=== PATIENT | female | born 1980 | race Caucasian/White ===

== ENCOUNTER 2017-11-05 01:23 | Inpatient (IN) | payer MEDICAID ==
[~2017-11-05] VITALS: Ht 167.6 cm; Wt 69.0 kg
[2017-11-05] MEDS ORDERED: OXYTOCIN 30U/ 0.9% NaCL 500ML 500 ML IV ONE (01:40)
[2017-11-05] MEDS ORDERED: LACTATED RINGERS 1,000 ML IV SCH (01:40)
[2017-11-05] MEDS ORDERED: D5%-LACTATED RINGERS 1,000 ML IV SCH (01:40)
[2017-11-05] MEDS ORDERED: MISOPROSTOL 200 MCG TABLET ONE (01:48)
[2017-11-05] MEDS ORDERED: NEWBORN KIT ONE (01:48)
[2017-11-05] MEDS ORDERED: LIDOCAINE/PF 1%, 30ML ONE ×2 (01:48→04:11)
[2017-11-05] MEDS ORDERED: OXYTOCIN 30U/ 0.9% NaCL 500ML 500 ML ONE ×2 (01:48→04:49)
[2017-11-05] MEDS ORDERED: FENTANYL PF 100 MCG/2ML IVPush PRN (02:00)
[2017-11-05] MEDS ORDERED: FENTANYL PF 100 MCG/2ML IV PRN (02:00)
[2017-11-05] MEDS ORDERED: CALCIUM CARBONATE 500 MG TAB.CHEW PO PRN (02:00)
[2017-11-05] MEDS ORDERED: ONDANSETRON ODT 4 MG PO PRN (02:00)
[2017-11-05 02:19] VITALS: BP 101/60
[2017-11-05 02:26] LABS: MD YES; MEAN CORPUSCULAR HEMOGLOBIN 30.2 pg (27.0-34.8); MEAN CORPUSCULAR HGB CONC 33.3 g/dL (32.4-35.8); MEAN CORPUSCULAR VOLUME 90.5 fL (80-100); MEAN PLATELET VOLUME 13.4 fL (7.4-10.4); PLATELET COUNT 220 x10^3/uL (130-400); RED BLOOD COUNT 4.07 x10^6/uL (3.82-5.3); RED CELL DISTRIBUTION WIDTH 15.2 % (9.6-15.2)
[2017-11-05 02:29] LABS: <PLATELET ESTIMATE> ADEQUATE; <RBC MORPHOLOGY> NORMAL; LARGE PLATELETS 1+; LYMPHS% (MANUAL) 15 % (22-44); MONOS% (MANUAL) 5 % (2-9); SEGS% (MANUAL) 80 % (42-75)
[2017-11-05] MEDS: OXYTOCIN 30U/ 0.9% NaCL 500ML 500 ML IV SCH ×2 (04:51→14:43)
[2017-11-05] MEDS ORDERED: ONDANSETRON 2MG/ML, 2ML IV PRN (05:00)
[2017-11-05] MEDS ORDERED: MISOPROSTOL 200 MCG TABLET PR PRN (05:00)
[2017-11-05] MEDS ORDERED: ACETAMINOPHEN 325 MG TABLET PO PRN (05:00)
[2017-11-05] MEDS ORDERED: HYDROcodone/APAP 5/325 TABLET PO PRN ×2 (05:00)
[2017-11-05] MEDS ORDERED: BISACODYL 10 MG SUPP PR PRN (05:00)
[2017-11-05] MEDS ORDERED: METOCLOPRAMIDE 5 MG/ML, 2ML IV PRN (05:00)
[2017-11-05 05:59] VITALS: BP 104/66
[2017-11-05 07:56] VITALS: BP 103/61
[2017-11-05] MEDS: PRENATAL VIT/IRON/FA 1 EACH TABLET PO SCH (08:39)
[2017-11-05] MEDS: DOCUSATE 100 MG CAPSULE PO PRN ×2 (08:39→22:20)
[2017-11-05] MEDS: IBUPROFEN 600 MG TABLET PO PRN ×2 (08:42→22:20)
[2017-11-05 12:00] VITALS: BP 99/63
[2017-11-05 12:57] LABS: BASOPHILS # (AUTO) 0.03 x10^3/uL (0-0.1); BASOPHILS % (AUTO) 0 % (0-1); EOSINOPHILS # (AUTO) 0.12 x10^3/uL (0-0.4); EOSINOPHILS % (AUTO) 1 % (1-7); LYMPHOCYTES # (AUTO) 1.46 x10^3/uL (1-3.4); LYMPHOCYTES % (AUTO) 10 % (22-44); MD NO; MEAN CORPUSCULAR HEMOGLOBIN 30.1 pg (27.0-34.8); MEAN CORPUSCULAR HGB CONC 32.8 g/dL (32.4-35.8); MEAN CORPUSCULAR VOLUME 91.7 fL (80-100); MEAN PLATELET VOLUME 10.7 fL (7.4-10.4); MONOCYTES # (AUTO) 0.62 x10^3/uL (0.2-0.8); MONOCYTES % (AUTO) 4 % (2-9); NEUTROPHILS # (AUTO) 12.19 x10^3/uL (1.8-6.8); NEUTROPHILS % (AUTO) 85 % (42-75); PLATELET COUNT 178 x10^3/uL (130-400); RED BLOOD COUNT 3.98 x10^6/uL (3.82-5.3)
[2017-11-05 16:00] VITALS: BP 98/67
[2017-11-05] MEDS ORDERED: DIPH,PERTUSS(ACELL),TET VAC/PF NC IM-VACC ONE (19:30)
[2017-11-05 19:50] VITALS: BP 106/73
[2017-11-06] VITALS: BP 102/63
[2017-11-06] MEDS: OXYTOCIN 30U/ 0.9% NaCL 500ML 500 ML IV SCH (00:43)
[2017-11-06] MEDS ORDERED: IBUP-1222 PO (07:06)
[2017-11-06] MEDS ORDERED: PREN1TAB60 PO (07:06)
[2017-11-06 08:20] VITALS: BP 106/70
[2017-11-06] MEDS: DOCUSATE 100 MG CAPSULE PO PRN (09:11)
[2017-11-06] MEDS: PRENATAL VIT/IRON/FA 1 EACH TABLET PO SCH (09:11)
[2017-11-06] MEDS: IBUPROFEN 600 MG TABLET PO PRN (14:32)
== END 2017-11-06 14:20 | disposition home or self-care (01) | DRG 775 ==
LOC: LDOP 01:23 → LDIP 01:43 → 2NW 05:44
PROVIDERS: ADMIT Family Medicine; ATTEND Obstetrics & Gynecology Female Pelvic Medicine and Reconstructive Surgery
PROC: 10E0XZZ Delivery of Products of Conception, External Approach (ICD-10-PCS; principal; 2017-11-05)
PROC: 0KQM0ZZ Repair Perineum Muscle, Open Approach (ICD-10-PCS; 2017-11-05)
DX: O70.1 Second degree perineal laceration during delivery (principal); Z37.0 Single live birth; Z3A.39 39 weeks gestation of pregnancy
CPT/HCPCS: 36415; 85025; 86850; 86900; 90715; J2590; J7120

== ENCOUNTER 2018-04-01 00:51 | Inpatient (IN) | payer MEDICAID ==
[~2018-04-01] VITALS: Ht 167.6 cm; Wt 63.8 kg
[~2018-04-01 00:51] MED LIST: IBUP-1222 PO; PREN1TAB60 PO
[2018-04-01] MEDS ORDERED: ONDANSETRON 2MG/ML, 2ML ONE (01:10)
[2018-04-01] MEDS ORDERED: MORPHINE SULFATE 4 MG/ML, 1ML ONE ×2 (01:11→02:51)
[2018-04-01] MEDS: MORPHINE SULFATE 4 MG/ML, 1ML IVPush PRN ×2 (01:20→01:57)
[2018-04-01 01:22] LABS: BASOPHILS # (AUTO) 0.01 x10^3/uL (0-0.1); BASOPHILS % (AUTO) 0 % (0-1); EOSINOPHILS # (AUTO) 0.11 x10^3/uL (0-0.4); EOSINOPHILS % (AUTO) 1 % (1-7); LYMPHOCYTES # (AUTO) 1.06 x10^3/uL (1-3.4); LYMPHOCYTES % (AUTO) 9 % (22-44); MD NO; MEAN CORPUSCULAR HGB CONC 33.4 g/dL (32.4-35.8); MEAN CORPUSCULAR VOLUME 92.9 fL (80-100); MEAN PLATELET VOLUME 9.4 fL (7.4-10.4); MONOCYTES # (AUTO) 0.53 x10^3/uL (0.2-0.8); MONOCYTES % (AUTO) 5 % (2-9); NEUTROPHILS # (AUTO) 9.86 x10^3/uL (1.8-6.8); NEUTROPHILS % (AUTO) 85 % (42-75); PLATELET COUNT 236 x10^3/uL (130-400); RED BLOOD COUNT 4.95 x10^6/uL (3.82-5.3); RED CELL DISTRIBUTION WIDTH 12.9 % (9.6-15.2)
[2018-04-01] MEDS ORDERED: SODIUM CHLORIDE FLUSH 10ML SYR IVF ONE ×2 (01:30→02:30)
[2018-04-01] MEDS ORDERED: ONDANSETRON 2MG/ML, 2ML IVPush ONE ×2 (01:30→03:00)
[2018-04-01 01:34] LABS: ALANINE AMINOTRANSFERASE 112 U/L (12-78); ALBUMIN 3.6 g/dL (3.4-5.0); ANION GAP 9 mmol/L (5-15); CALCIUM 8.7 mg/dL (8.5-10.1); CHLORIDE 108 mmol/L (98-107); CREATININE 0.85 mg/dL (0.55-1.02)
[2018-04-01 01:39] LABS: ALKALINE PHOSPHATASE 75 U/L (45-117); BILIRUBIN,TOTAL 2.3 mg/dL (0.2-1.0)
[2018-04-01] MEDS ORDERED: SODIUM CHLORIDE 0.9% 1,000ML IVBOLUS ONE (02:30)
[2018-04-01] MEDS ORDERED: MORPHINE SULFATE 4 MG/ML, 1ML IVPush PRN (03:00)
[2018-04-01 03:45] VITALS: BP 129/80
[2018-04-01] MEDS ORDERED: SODIUM CHLORIDE 0.9% 1,000 ML IV SCH (04:58)
[2018-04-01] MEDS: HEPARIN 5,000 UNITS/ML, 1ML SQ SCH ×3 (05:00→20:46)
[2018-04-01] MEDS ORDERED: ONDANSETRON ODT 4 MG PO PRN (05:00)
[2018-04-01] MEDS: HYDROmorphone 2 MG/ML, 1ML IVPush PRN ×2 (05:31→14:12)
[2018-04-01] MEDS: PROMETHAZINE 25 MG/ML, 1ML IM PRN (05:32)
[2018-04-01] MEDS: LACTATED RINGERS 1,000 ML IV SCH ×4 (05:32→23:45)
[2018-04-01 07:25] VITALS: BP 136/75
[2018-04-01] MEDS: KETOROLAC 30 MG/1 ML IV PRN ×3 (09:58→23:11)
[2018-04-01 12:31] VITALS: BP 122/73
[2018-04-01 19:02] VITALS: BP 118/65
[2018-04-02 01:15] VITALS: BP 125/73
[2018-04-02] MEDS: HYDROmorphone 2 MG/ML, 1ML IVPush PRN ×3 (03:58→23:24)
[2018-04-02] MEDS: HEPARIN 5,000 UNITS/ML, 1ML SQ SCH ×3 (04:34→19:35)
[2018-04-02 05:06] LABS: ALANINE AMINOTRANSFERASE 69 U/L (12-78); ALBUMIN 2.8 g/dL (3.4-5.0); ANION GAP 8 mmol/L (5-15); CALCIUM 7.6 mg/dL (8.5-10.1); CHLORIDE 110 mmol/L (98-107); CREATININE 0.56 mg/dL (0.55-1.02)
[2018-04-02 05:08] LABS: ALKALINE PHOSPHATASE 65 U/L (45-117); BILIRUBIN,TOTAL 0.9 mg/dL (0.2-1.0); TOTAL PROTEIN 5.6 g/dL (6.4-8.2)
[2018-04-02] MEDS: LACTATED RINGERS 1,000 ML IV SCH ×3 (06:10→23:24)
[2018-04-02 06:19] LABS: BASOPHILS # (AUTO) 0.01 x10^3/uL (0-0.1); BASOPHILS % (AUTO) 0 % (0-1); EOSINOPHILS # (AUTO) 0.04 x10^3/uL (0-0.4); EOSINOPHILS % (AUTO) 1 % (1-7); LYMPHOCYTES # (AUTO) 1.23 x10^3/uL (1-3.4); LYMPHOCYTES % (AUTO) 15 % (22-44); MD NO; MEAN CORPUSCULAR HEMOGLOBIN 30.5 pg (27.0-34.8); MEAN CORPUSCULAR HGB CONC 33.3 g/dL (32.4-35.8); MEAN CORPUSCULAR VOLUME 91.5 fL (80-100); MEAN PLATELET VOLUME 10.4 fL (7.4-10.4); MONOCYTES # (AUTO) 0.58 x10^3/uL (0.2-0.8); MONOCYTES % (AUTO) 7 % (2-9); NEUTROPHILS # (AUTO) 6.45 x10^3/uL (1.8-6.8); NEUTROPHILS % (AUTO) 78 % (42-75); PLATELET COUNT 203 x10^3/uL (130-400); RED BLOOD COUNT 3.97 x10^6/uL (3.82-5.3); RED CELL DISTRIBUTION WIDTH 13.1 % (9.6-15.2)
[2018-04-02 07:50] VITALS: BP 111/70
[2018-04-02] MEDS ORDERED: MAGNESIUM SULFATE PMX 2GM/50ML 50 ML IV ONE (08:30)
[2018-04-02] MEDS ORDERED: POTASSIUM PHOSPHATE 22 MEQ in SODIUM CHLORIDE 0.9% 500 ML IV ONE (08:30)
[2018-04-02] MEDS: KETOROLAC 30 MG/1 ML IV PRN (10:58)
[2018-04-02 11:04] LABS: MICROSCOPIC AUTO
[2018-04-02 11:05] LABS: CULTURE INDICATED? YES
[2018-04-02 12:35] VITALS: BP 131/81
[2018-04-02] MEDS: ONDANSETRON 2MG/ML, 2ML IVPush PRN (14:44)
[2018-04-02] MEDS ORDERED: BUPIVACAINE/PF-EPI 0.5% 1:200K ONE (15:26)
[2018-04-02] MEDS ORDERED: SUCCINYLCHOLINE 20 MG/ML, 10ML ONE (15:54)
[2018-04-02] MEDS ORDERED: ONDANSETRON 2MG/ML, 2ML ONE (15:54)
[2018-04-02] MEDS ORDERED: METOCLOPRAMIDE 5 MG/ML, 2ML ONE (15:54)
[2018-04-02] MEDS ORDERED: DEXAMETHASONE 4 MG/ML, 1ML ONE (15:54)
[2018-04-02] MEDS ORDERED: ROCURONIUM 10 MG/ML,10ML ONE (15:54)
[2018-04-02] MEDS ORDERED: PROPOFOL 10 MG/ML, 20ML ONE (15:54)
[2018-04-02] MEDS ORDERED: CEFAZOLIN 1,000 MG ONE (15:54)
[2018-04-02] MEDS ORDERED: FENTANYL PF 100 MCG/2ML ONE (15:55)
[2018-04-02] MEDS ORDERED: MIDAZOLAM 1 MG/ML, 2ML ONE (15:55)
[2018-04-02] MEDS ORDERED: OMNIPAQUE 350 MG/ML, 50 ML BOTTLE IV ONE (16:13)
[2018-04-02] MEDS ORDERED: SUGAMMADEX 200 MG/2 ML IVPush ONE (16:32)
[2018-04-02] MEDS ORDERED: MIDAZOLAM 1 MG/ML, 2ML IV PRN (17:00)
[2018-04-02] MEDS ORDERED: FENTANYL PF 100 MCG/2ML IV PRN (17:00)
[2018-04-02] MEDS ORDERED: MEPERIDINE/PF 25MG/0.5ML IVPush PRN (17:00)
[2018-04-02] MEDS ORDERED: HYDROmorphone 1 MG/ML, 1ML IV PRN (17:00)
[2018-04-02] MEDS ORDERED: ONDANSETRON 2MG/ML, 2ML IVPush PRN (17:00)
[2018-04-02] MEDS ORDERED: LABETALOL 5MG/ML, 20ML IV PRN (17:00)
[2018-04-02] MEDS: OXYcodone 5 MG/5 ML ORAL.SOL UDC PO PRN ×2 (17:20→17:23)
[2018-04-02] MEDS ORDERED: OXYcodone 5 MG/5 ML ORAL.SOL UDC ONE (17:22)
[2018-04-02 17:57] VITALS: BP 121/75
[2018-04-02 19:20] VITALS: BP 123/70
[2018-04-03 01:24] VITALS: BP 116/72
[2018-04-03] MEDS: HYDROmorphone 2 MG/ML, 1ML IVPush PRN ×2 (04:17→13:47)
[2018-04-03 04:29] LABS: BASOPHILS % (AUTO) 0 % (0-1); EOSINOPHILS % (AUTO) 0 % (1-7); LYMPHOCYTES # (AUTO) 0.72 x10^3/uL (1-3.4); LYMPHOCYTES % (AUTO) 9 % (22-44); MD NO; MEAN CORPUSCULAR HEMOGLOBIN 31.2 pg (27.0-34.8); MEAN CORPUSCULAR HGB CONC 33.6 g/dL (32.4-35.8); MEAN CORPUSCULAR VOLUME 92.9 fL (80-100); MEAN PLATELET VOLUME 9.3 fL (7.4-10.4); MONOCYTES # (AUTO) 0.49 x10^3/uL (0.2-0.8); MONOCYTES % (AUTO) 6 % (2-9); NEUTROPHILS % (AUTO) 85 % (42-75); PLATELET COUNT 204 x10^3/uL (130-400); RED BLOOD COUNT 3.74 x10^6/uL (3.82-5.3); RED CELL DISTRIBUTION WIDTH 12.7 % (9.6-15.2)
[2018-04-03 04:41] LABS: ALBUMIN 2.7 g/dL (3.4-5.0); ANION GAP 6 mmol/L (5-15); CALCIUM 7.4 mg/dL (8.5-10.1); CHLORIDE 107 mmol/L (98-107)
[2018-04-03 04:46] LABS: ALANINE AMINOTRANSFERASE 57 U/L (12-78); ALKALINE PHOSPHATASE 60 U/L (45-117); BILIRUBIN,TOTAL 0.5 mg/dL (0.2-1.0); TOTAL PROTEIN 5.7 g/dL (6.4-8.2)
[2018-04-03] MEDS: HEPARIN 5,000 UNITS/ML, 1ML SQ SCH ×3 (04:47→21:00)
[2018-04-03] MEDS: LACTATED RINGERS 1,000 ML IV SCH ×2 (05:36→11:41)
[2018-04-03 07:11] VITALS: BP 135/76
[2018-04-03] MEDS: KETOROLAC 30 MG/1 ML IV PRN ×2 (08:32→18:23)
[2018-04-03] MEDS: ONDANSETRON 2MG/ML, 2ML IVPush PRN (11:41)
[2018-04-03] MEDS: PROMETHAZINE 25 MG/ML, 1ML IM PRN ×2 (13:51→22:48)
[2018-04-03 13:59] VITALS: BP 122/67
[2018-04-03 19:23] VITALS: BP 113/69
[2018-04-04] MEDS: KETOROLAC 30 MG/1 ML IV PRN ×3 (00:03→19:55)
[2018-04-04 01:11] VITALS: BP 136/78
[2018-04-04] MEDS: HEPARIN 5,000 UNITS/ML, 1ML SQ SCH ×3 (03:54→21:00)
[2018-04-04] MEDS ORDERED: LACTATED RINGERS 1,000 ML IV SCH (05:30)
[2018-04-04 06:12] LABS: ALBUMIN 2.5 g/dL (3.4-5.0); ANION GAP 7 mmol/L (5-15); CALCIUM 7.5 mg/dL (8.5-10.1); CHLORIDE 108 mmol/L (98-107)
[2018-04-04 06:17] LABS: ALANINE AMINOTRANSFERASE 43 U/L (12-78); ALKALINE PHOSPHATASE 53 U/L (45-117); BILIRUBIN,TOTAL 0.4 mg/dL (0.2-1.0); CREATININE 0.64 mg/dL (0.55-1.02); TOTAL PROTEIN 5.5 g/dL (6.4-8.2)
[2018-04-04] MEDS ORDERED: SODIUM PHOSPHATE 20 MMOL in SODIUM CHLORIDE 0.9% 500 ML IV ONE (07:30)
[2018-04-04 07:55] VITALS: BP 144/74
[2018-04-04 08:12] LABS: BASOPHILS # (AUTO) 0.03 x10^3/uL (0-0.1); BASOPHILS % (AUTO) 0 % (0-1); EOSINOPHILS # (AUTO) 0.07 x10^3/uL (0-0.4); EOSINOPHILS % (AUTO) 1 % (1-7); LYMPHOCYTES # (AUTO) 1.04 x10^3/uL (1-3.4); LYMPHOCYTES % (AUTO) 13 % (22-44); MD NO; MEAN CORPUSCULAR HEMOGLOBIN 30.4 pg (27.0-34.8); MEAN CORPUSCULAR VOLUME 92.3 fL (80-100); MEAN PLATELET VOLUME 10.3 fL (7.4-10.4); MONOCYTES # (AUTO) 0.63 x10^3/uL (0.2-0.8); MONOCYTES % (AUTO) 8 % (2-9); NEUTROPHILS # (AUTO) 6.38 x10^3/uL (1.8-6.8); NEUTROPHILS % (AUTO) 78 % (42-75); PLATELET COUNT 227 x10^3/uL (130-400); RED BLOOD COUNT 3.69 x10^6/uL (3.82-5.3); RED CELL DISTRIBUTION WIDTH 12.8 % (9.6-15.2)
[2018-04-04] MEDS ORDERED: ACETAMINOPHEN 325 MG TABLET PO PRN (13:30)
[2018-04-04 13:59] VITALS: BP 135/80
[2018-04-04] MEDS: OXYcodone 5 MG/5 ML ORAL.SOL UDC PO PRN (16:28)
[2018-04-04 19:45] VITALS: BP 141/88
[2018-04-05 00:35] VITALS: BP 133/72
[2018-04-05] MEDS: LACTATED RINGERS 1,000 ML IV SCH ×2 (01:13→17:09)
[2018-04-05] MEDS: OXYcodone 5 MG/5 ML ORAL.SOL UDC PO PRN (01:13)
[2018-04-05] MEDS: HEPARIN 5,000 UNITS/ML, 1ML SQ SCH ×3 (04:53→20:24)
[2018-04-05 05:49] LABS: BASOPHILS # (AUTO) 0.03 x10^3/uL (0-0.1); BASOPHILS % (AUTO) 0 % (0-1); EOSINOPHILS # (AUTO) 0.13 x10^3/uL (0-0.4); EOSINOPHILS % (AUTO) 2 % (1-7); LYMPHOCYTES # (AUTO) 1.05 x10^3/uL (1-3.4); LYMPHOCYTES % (AUTO) 15 % (22-44); MD NO; MEAN CORPUSCULAR HEMOGLOBIN 31.4 pg (27.0-34.8); MEAN CORPUSCULAR HGB CONC 33.7 g/dL (32.4-35.8); MEAN CORPUSCULAR VOLUME 93.2 fL (80-100); MEAN PLATELET VOLUME 10.3 fL (7.4-10.4); MONOCYTES # (AUTO) 0.48 x10^3/uL (0.2-0.8); MONOCYTES % (AUTO) 7 % (2-9); NEUTROPHILS # (AUTO) 5.25 x10^3/uL (1.8-6.8); NEUTROPHILS % (AUTO) 76 % (42-75); PLATELET COUNT 201 x10^3/uL (130-400); RED BLOOD COUNT 3.36 x10^6/uL (3.82-5.3); RED CELL DISTRIBUTION WIDTH 12.1 % (9.6-15.2)
[2018-04-05 05:56] LABS: CHLORIDE 110 mmol/L (98-107)
[2018-04-05 06:03] LABS: ANION GAP 8 mmol/L (5-15); CALCIUM 7.8 mg/dL (8.5-10.1); CREATININE 0.43 mg/dL (0.55-1.02)
[2018-04-05 07:18] VITALS: BP 149/83
[2018-04-05] MEDS: KETOROLAC 30 MG/1 ML IV PRN ×3 (09:43→22:02)
[2018-04-05] MEDS ORDERED: LORazepam 2 MG/ML, 1ML IVPush ONE (13:30)
[2018-04-05 13:34] VITALS: BP 131/78
[2018-04-05 19:47] VITALS: BP 136/81
[2018-04-06 00:26] VITALS: BP 127/83
[2018-04-06] MEDS ORDERED: METOCLOPRAMIDE 5 MG/ML, 2ML IVPush ONE (01:00)
[2018-04-06] MEDS: HEPARIN 5,000 UNITS/ML, 1ML SQ SCH ×3 (05:00→21:00)
[2018-04-06 05:24] LABS: BASOPHILS # (AUTO) 0.04 x10^3/uL (0-0.1); BASOPHILS % (AUTO) 1 % (0-1); EOSINOPHILS # (AUTO) 0.28 x10^3/uL (0-0.4); EOSINOPHILS % (AUTO) 4 % (1-7); LYMPHOCYTES # (AUTO) 1.49 x10^3/uL (1-3.4); LYMPHOCYTES % (AUTO) 22 % (22-44); MD NO; MEAN CORPUSCULAR HEMOGLOBIN 31.5 pg (27.0-34.8); MEAN CORPUSCULAR HGB CONC 34.2 g/dL (32.4-35.8); MEAN CORPUSCULAR VOLUME 92.2 fL (80-100); MEAN PLATELET VOLUME 10.1 fL (7.4-10.4); MONOCYTES # (AUTO) 0.52 x10^3/uL (0.2-0.8); MONOCYTES % (AUTO) 8 % (2-9); NEUTROPHILS # (AUTO) 4.45 x10^3/uL (1.8-6.8); NEUTROPHILS % (AUTO) 66 % (42-75); PLATELET COUNT 236 x10^3/uL (130-400); RED BLOOD COUNT 3.31 x10^6/uL (3.82-5.3); RED CELL DISTRIBUTION WIDTH 12.5 % (9.6-15.2)
[2018-04-06 05:31] LABS: ALBUMIN 2.3 g/dL (3.4-5.0); ANION GAP 7 mmol/L (5-15); CALCIUM 7.7 mg/dL (8.5-10.1); CHLORIDE 112 mmol/L (98-107)
[2018-04-06 05:35] LABS: ALANINE AMINOTRANSFERASE 32 U/L (12-78); ALKALINE PHOSPHATASE 58 U/L (45-117); BILIRUBIN,TOTAL 0.4 mg/dL (0.2-1.0); CREATININE 0.47 mg/dL (0.55-1.02); TOTAL PROTEIN 5.1 g/dL (6.4-8.2)
[2018-04-06] MEDS: LACTATED RINGERS 1,000 ML IV SCH ×2 (06:30→22:48)
[2018-04-06 07:07] VITALS: BP 149/82
[2018-04-06] MEDS ORDERED: SUCCINYLCHOLINE 20 MG/ML, 10ML ONE (10:40)
[2018-04-06] MEDS ORDERED: DEXAMETHASONE 4 MG/ML, 1ML ONE (10:40)
[2018-04-06] MEDS ORDERED: ONDANSETRON 2MG/ML, 2ML ONE (10:40)
[2018-04-06] MEDS ORDERED: PROPOFOL 10 MG/ML, 20ML ONE (10:40)
[2018-04-06] MEDS ORDERED: ROCURONIUM 10MG/ML,5ML ONE (10:40)
[2018-04-06] MEDS ORDERED: PROPOFOL 10 MG/ML, 50ML ONE (10:40)
[2018-04-06] MEDS ORDERED: BUPIVACAINE/PF 0.5% ONE (11:29)
[2018-04-06] MEDS ORDERED: EPINEPHRINE 1 MG/ML, 1ML ONE (11:29)
[2018-04-06] MEDS ORDERED: FENTANYL PF 250 MCG/5ML ONE (11:36)
[2018-04-06] MEDS ORDERED: MIDAZOLAM 1 MG/ML, 2ML ONE (11:37)
[2018-04-06] MEDS ORDERED: FENTANYL PF 100 MCG/2ML IV PRN (12:00)
[2018-04-06] MEDS ORDERED: MEPERIDINE/PF 25MG/0.5ML IVPush PRN (12:00)
[2018-04-06] MEDS ORDERED: EPHEDRINE 50 MG/ML, 1ML IM PRN (12:00)
[2018-04-06] MEDS ORDERED: PROMETHAZINE 25 MG SUPP PR PRN (12:00)
[2018-04-06] MEDS ORDERED: DIPHENHYDRAMINE 50 MG/ML, 1ML IVPush PRN (12:00)
[2018-04-06] MEDS ORDERED: MIDAZOLAM 1 MG/ML, 2ML IV PRN (12:00)
[2018-04-06] MEDS ORDERED: OXYcodone 5 MG/5 ML ORAL.SOL UDC PO PRN (12:00)
[2018-04-06] MEDS ORDERED: PROMETHAZINE 12.5 MG SUPP PR PRN (12:00)
[2018-04-06] MEDS ORDERED: PROMETHAZINE 25 MG/ML, 1ML IV PRN (12:00)
[2018-04-06] MEDS ORDERED: MORPHINE SULFATE 4 MG/ML, 1ML IVPush PRN (12:00)
[2018-04-06] MEDS ORDERED: ONDANSETRON 2MG/ML, 2ML IV PRN (12:00)
[2018-04-06] MEDS ORDERED: ONDANSETRON ODT 8 MG PO PRN (12:00)
[2018-04-06] MEDS ORDERED: OMNIPAQUE 350 MG/ML, 50 ML BOTTLE ONE (12:26)
[2018-04-06] MEDS ORDERED: MEPERIDINE/PF 50 MG/ML ONE (13:15)
[2018-04-06 14:04] VITALS: BP 142/77
[2018-04-06] MEDS: PIPERACILLIN/TAZO/PMX 4.5GM 100 ML IV SCH ×2 (14:25→19:49)
[2018-04-06 14:35] VITALS: BP 130/77
[2018-04-06] MEDS ORDERED: MAGNESIUM SULFATE PMX 2GM/50ML 50 ML IV ONE (15:00)
[2018-04-06 19:31] VITALS: BP 135/73
[2018-04-06] MEDS: ONDANSETRON 2MG/ML, 2ML IVPush PRN (22:48)
[2018-04-07 03:09] VITALS: BP 150/81
[2018-04-07] MEDS: PIPERACILLIN/TAZO/PMX 4.5GM 100 ML IV SCH ×3 (04:05→20:02)
[2018-04-07] MEDS: HEPARIN 5,000 UNITS/ML, 1ML SQ SCH ×3 (05:00→20:37)
[2018-04-07 05:32] LABS: BASOPHILS # (AUTO) 0.03 x10^3/uL (0-0.1); BASOPHILS % (AUTO) 0 % (0-1); EOSINOPHILS # (AUTO) 0.23 x10^3/uL (0-0.4); EOSINOPHILS % (AUTO) 3 % (1-7); LYMPHOCYTES # (AUTO) 1.54 x10^3/uL (1-3.4); LYMPHOCYTES % (AUTO) 17 % (22-44); MD NO; MEAN CORPUSCULAR HEMOGLOBIN 30.9 pg (27.0-34.8); MEAN CORPUSCULAR HGB CONC 33.5 g/dL (32.4-35.8); MEAN CORPUSCULAR VOLUME 92.3 fL (80-100); MEAN PLATELET VOLUME 10.1 fL (7.4-10.4); MONOCYTES % (AUTO) 7 % (2-9); NEUTROPHILS # (AUTO) 6.64 x10^3/uL (1.8-6.8); NEUTROPHILS % (AUTO) 74 % (42-75); PLATELET COUNT 284 x10^3/uL (130-400); RED BLOOD COUNT 3.54 x10^6/uL (3.82-5.3); RED CELL DISTRIBUTION WIDTH 12.6 % (9.6-15.2)
[2018-04-07 07:05] VITALS: BP 120/72
[2018-04-07 07:12] LABS: ALANINE AMINOTRANSFERASE 34 U/L (12-78); ALBUMIN 2.4 g/dL (3.4-5.0); CALCIUM 7.9 mg/dL (8.5-10.1); CREATININE 0.65 mg/dL (0.55-1.02)
[2018-04-07 07:14] LABS: ALKALINE PHOSPHATASE 61 U/L (45-117); BILIRUBIN,TOTAL 0.6 mg/dL (0.2-1.0); TOTAL PROTEIN 5.5 g/dL (6.4-8.2)
[2018-04-07 07:29] LABS: ANION GAP 8 mmol/L (5-15); CHLORIDE 104 mmol/L (98-107)
[2018-04-07 12:31] VITALS: BP 128/79
[2018-04-07] MEDS: LACTATED RINGERS 1,000 ML IV SCH (14:26)
[2018-04-07 19:42] VITALS: BP 118/73
[2018-04-08 01:31] VITALS: BP 135/77
[2018-04-08] MEDS: PIPERACILLIN/TAZO/PMX 4.5GM 100 ML IV SCH ×2 (04:11→12:46)
[2018-04-08] MEDS: HEPARIN 5,000 UNITS/ML, 1ML SQ SCH ×2 (05:00→12:46)
[2018-04-08 05:25] LABS: BASOPHILS # (AUTO) 0.06 x10^3/uL (0-0.1); BASOPHILS % (AUTO) 1 % (0-1); EOSINOPHILS # (AUTO) 0.48 x10^3/uL (0-0.4); EOSINOPHILS % (AUTO) 5 % (1-7); LYMPHOCYTES # (AUTO) 1.98 x10^3/uL (1-3.4); LYMPHOCYTES % (AUTO) 22 % (22-44); MD NO; MEAN CORPUSCULAR HEMOGLOBIN 30.5 pg (27.0-34.8); MEAN CORPUSCULAR HGB CONC 33.1 g/dL (32.4-35.8); MEAN CORPUSCULAR VOLUME 92.1 fL (80-100); MONOCYTES # (AUTO) 0.53 x10^3/uL (0.2-0.8); MONOCYTES % (AUTO) 6 % (2-9); NEUTROPHILS # (AUTO) 6.13 x10^3/uL (1.8-6.8); NEUTROPHILS % (AUTO) 67 % (42-75); PLATELET COUNT 377 x10^3/uL (130-400); RED BLOOD COUNT 3.93 x10^6/uL (3.82-5.3); RED CELL DISTRIBUTION WIDTH 12.8 % (9.6-15.2)
[2018-04-08 05:40] LABS: CHLORIDE 105 mmol/L (98-107)
[2018-04-08] MEDS: LACTATED RINGERS 1,000 ML IV SCH (05:41)
[2018-04-08 05:48] LABS: ALANINE AMINOTRANSFERASE 32 U/L (12-78); ALBUMIN 2.7 g/dL (3.4-5.0); ALKALINE PHOSPHATASE 62 U/L (45-117); ANION GAP 8 mmol/L (5-15); BILIRUBIN,TOTAL 0.6 mg/dL (0.2-1.0); CALCIUM 7.9 mg/dL (8.5-10.1); CREATININE 0.71 mg/dL (0.55-1.02); TOTAL PROTEIN 6.1 g/dL (6.4-8.2)
[2018-04-08 06:45] VITALS: BP 133/81
[2018-04-08 13:30] VITALS: BP 103/64
[2018-04-08] MEDS ORDERED: AMOX1TAB64 PO (14:26)
== END 2018-04-08 16:10 | disposition home or self-care (01) | DRG 417 ==
LOC: ED 01:36 → EDIP 02:30 → 3NE 03:23 → DCLOUNGE 04-08 15:55
PROVIDERS: ADMIT Hospitalist; ATTEND Family Medicine
PROC: 0FT44ZZ Resection of Gallbladder, Percutaneous Endoscopic Approach (ICD-10-PCS; principal; 2018-04-02 15:15)
PROC: 0WJP4ZZ Inspection of Gastrointestinal Tract, Percutaneous Endoscopic Approach (ICD-10-PCS; 2018-04-06 11:00)
DX: K80.66 Calculus of gallbladder and bile duct with acute and chronic cholecystitis without obstruction (principal); K85.10 Biliary acute pancreatitis without necrosis or infection; K91.89 Other postprocedural complications and disorders of digestive system; E83.39 Other disorders of phosphorus metabolism; Y83.8 Other surgical procedures as the cause of abnormal reaction of the patient, or of later complication, without mention of misadventure at the time of the procedure; E83.42 Hypomagnesemia; E86.9 Volume depletion, unspecified; F40.240 Claustrophobia; Z53.20 Procedure and treatment not carried out because of patient's decision for unspecified reasons
CPT/HCPCS: 36415; 74181; 74328; 76700; 78226; 80048; 80053; 81001; 83690; 83735; 84100; 84478; 84703; 85025; 87086; 88304; 96374; 96375; 96376; G0378; J0171; J0690; J1100; J1170; J1885; J2175; J2250; J2405; J2543; J2550; J2704; J3010; J3490; Q9967; A9537; C1769; C9898; J0330; J2060; J2765; J3475; J7030; J7040; J7120